=== PATIENT | male | born 1975 | race Caucasian/White ===

== ENCOUNTER 2019-06-13 16:11 | Emergency (ER) | payer SELFPAY ==
[~2019-06-13] VITALS: Ht 175.3 cm; Wt 72.0 kg
[2019-06-13] MEDS ORDERED: SODIUM CHLORIDE 0.9% 1,000 ML IV ONE (17:30)
[2019-06-13] MEDS ORDERED: LORAZEPAM 2MG/ML CPJ IM ONE (18:00)
[2019-06-13] MEDS ORDERED: HALOPERIDOL LACTATE 5MG/ML VIAL IM ONE (18:00)
[2019-06-13 21:55] VITALS: BP 110/62
== END 2019-06-14 07:49 | disposition home or self-care (01) ==
LOC: ER 16:11
DX: F15.10 Other stimulant abuse, uncomplicated (principal); F91.8 Other conduct disorders; F99 Mental disorder, not otherwise specified
CPT/HCPCS: 36415; 84484; 93005; 96360; 96361; 96372; 99285; J1630; J2060; J7030